=== PATIENT | female | born 1955 | race Caucasian/White ===

== ENCOUNTER 2019-10-13 17:58 | Emergency (ER) | payer MEDICAID ==
[~2019-10-13] VITALS: Ht 154.9 cm; Wt 50.9 kg
[2019-10-13 18:08] VITALS: TEMP 99
[2019-10-13 18:28] LABS: BASO # 0.1 (0.0-0.2); BASO % 0.5 % (0.0-2.0); EOS % 0.2 % (0-4.0); GRAN # 14.4 (1.4-6.5); HEMATOCRIT 49.2 % (37.0-47.0); LYMPH # 2.3 (1.2-3.4); LYMPH % 12.4 % (20.0-51.0); MEAN CELL VOLUME 92 fl (80.0-100.0); MEAN CORPUSCULAR HEMOGLOBIN 30 pg (27.0-31.0); MEAN CORPUSCULAR HGB CONC 33 g/dl (33.0-37.0); MONO # 1.4 (0.1-0.6); MONO % 7.5 % (1.7-9.3); PLATELET COUNT 498 K/mm3 (130-400); RED BLOOD COUNT 5.33 M/mm3 (4.10-5.30); REDCELL DISTRIBUTION WIDTH-CV 12.5 % (11.5-14.5)
[2019-10-13 18:36] LABS: ALKALINE PHOSPHATASE 132 U/L (50-136); ANION GAP 15 mmol/L (7-16); AST,SGOT 40 U/L (15-37); BLOOD UREA NITROGEN 16 mg/dL (7-17); CALCIUM 10.5 mg/dL (8.4-10.2); CARBON DIOXIDE 23 mmol/L (22-30); CHLORIDE 104 mmol/L (98-107); CREATININE, serum 1.23 (0.52-1.25); GLUCOSE 142 mg/dL (74-106); POTASSIUM 4.4 mmol/L (3.4-5.0); SODIUM 142 mmol/L (137-145); TOTAL PROTEIN 8.5 gm/dL (6.4-8.2)
[2019-10-13 18:41] LABS: ALANINE AMINOTRANSFERASE 28 U/L (4-34)
[2019-10-13 18:43] LABS: ACETAMINOPHEN < 10 ug/mL (10-30); ALCOHOL(ethanol),MEDICAL < 10 mg/dL; SALICYLATE < 1.0 mg/dL
[2019-10-13 18:56] LABS: COLLECTION METHOD CLEAN CATCH
[2019-10-13 19:02] LABS: MUCOUS Present /lpf; PH 5 (5-8); SQUAMOUS EPITHELIAL None Seen /hpf; URINE APPEARANCE Hazy; URINE BACTERIA None Seen /hpf; URINE BILIRUBIN Negative (NEGATIVE); URINE BLOOD Negative (NEGATIVE); URINE COLOR Yellow; URINE GLUCOSE Negative (NEGATIVE); URINE KETONE 1+ (NEGATIVE); URINE LEUKOCYTE ESTERASE Negative (NEGATIVE); URINE NITRATE Negative (NEGATIVE); URINE PROTEIN(semi-quant) 1+ (NEGATIVE); URINE UROBILINOGEN Negative (NEGATIVE)
[2019-10-13] MEDS ORDERED: ZYRTEC 10MG10 MG PO (19:10)
[2019-10-13] MEDS ORDERED: SINGULAIR 110 MG/TAB PO (19:11)
[2019-10-13 19:12] LABS: TRICYCLIC ANTIDEPRESS URINE POSITIVE
[2019-10-13] MEDS ORDERED: ARICEPT10 MG PO (19:12)
[2019-10-13] MEDS ORDERED: FLEXERIL 1010 MG/TAB PO (19:12)
[2019-10-13] MEDS ORDERED: XANAX 1MG1 MG PO (19:13)
[2019-10-13] MEDS ORDERED: PROAIR HFA0.09 MG/AC IH (19:14)
[2019-10-13 19:26] LABS: TROPONIN-I 0.013 ng/mL (0.000-0.035)
[2019-10-13 20:43] LABS: GLUCOSE,CSF 96 mg/dL (40-70); TOTAL PROTEIN,CSF 52 mg/dL (15-45)
[2019-10-13 20:53] LABS: CSF APPEARANCE CLEAR; CSF COLOR COLORLESS; CSF RBC < 1 /mm3 (0-0)
[2019-10-13 20:54] LABS: CSF APPEARANCE CLEAR; CSF COLOR COLORLESS; CSF RBC 2 /mm3 (0-0)
[2019-10-13 21:37] LABS: CSF MONONUCLEAR 100 % (70-100); CSF POLYMORPHONUCLEAR 0 % (0-6)
[2019-10-13 21:38] LABS: CSF MONONUCLEAR 100 % (70-100); CSF POLYMORPHONUCLEAR 0 % (0-6)
--- NOTE | 2019-10-14 13:52 | NUR ---
City Surveyor was consulted for patient who is in need of [facility]. LUCINA contacted patient's daughter, Quinton (ph#[phone]) to obtain history. Quinton reports that she and patient live together in [place]. Patient lost her a year ago, who was also her DPOA-HC. Patient also just lost her mother last week. Quinton advised that patient went to vist her friend in [place] on the and forgot to take her medications. Quinton reports after patient stopped taking her medications, she started having bouts of shaking and confusion. Quinton states she went to [facility] for a day, but was discharged. Quinton states that patient was diagnosed with schizophrenia about 5 years ago but has been stable on medications up until now. Quinton states that at one point in time, patient was diagnosed with dementia but there has been some discrepancy about this diagnosis. Phylici[place]peford reports that patient has a history of inpatient psych placements. Phyliciashani reports patient drinks 2, 1-pint malt liquor beverages per day and also recently tested positive for amphetamines. Quinton states she suspected this but did not have proof until patient had a UDS at [facility]. LUCINA faxed referrals to [facility], [facility], [facility], [facility], [facility], [place], and [facility]. LUCIAN collaborated with Juli Hewitt who advised that patient's diagnosis of Dementia may be a barrier to [facility]. LUCINA collaborated with RNBethanie who advised patient will either be admitted or transferred. Per ED Physician Documentation, patient to be transferred to [facility]. LUCINA notified referrals. No additional needs at this time.
[2019-10-14 18:50] VITALS: BP 131/77; PULSE 82
== END 2019-10-14 18:55 | disposition short-term general hospital (02) ==
LOC: COL.ER 17:58
PROVIDERS: Emergency Medicine
DX: F29 Unspecified psychosis not due to a substance or known physiological condition (principal); F20.9 Schizophrenia, unspecified; F41.9 Anxiety disorder, unspecified
CPT/HCPCS: 99222; J1200; J1630; J2060; J2704; J3411; J3475; J7030